=== PATIENT | female | born 1985 | race Caucasian/White ===

== ENCOUNTER 2020-11-02 10:11 | Emergency (ER) | payer BC ==
[2020-11-02 10:17] VITALS: RESP 16
--- NOTE | 2020-11-02 11:01 | ED ---
General Adult HPI - General Chief complaint: Vaginal Bleeding Stated complaint: Vaginal Bleeding Time Seen by Provider: 11/02/20 10:18 Source: patient, RN notes reviewed Mode of arrival: ambulatory Limitations: no limitations - History of Present Illness Initial comments: 35-year-old female presents to the emergency room for vaginal bleeding. Patient reports that this is her sixth day of heavy vaginal bleeding. States she is passing clots. Patient states went to work today and had to frequently change her pads and tampons. Her boss wanted her to come to the ER. Patient denies any lightheadedness or episodes of syncope. Does admit to abdominal cramping. Patient reports that she takes the Depakote shot has been doing so for 3 years.Patient has no other complaints at this time including shortness of breath, chest pain, abdominal pain, nausea or vomiting, headache, or visual changes. - Related Data Allergies Allergy/AdvReac Type Severity Reaction Status Date / Time bee venom protein (honey bee) Allergy Swelling Verified 11/02/20 10:13 chocolate flavor Allergy Rash/Hives Verified 11/02/20 10:13 mustard Allergy Anaphylaxis Verified 11/02/20 10:13 Review of Systems ROS Statement: Those systems with pertinent positive or pertinent negative responses have been documented in the HPI. ROS Other: All systems not noted in ROS Statement are negative. Past Medical History Past Medical History: No Reported History History of Any Multi-Drug Resistant Organisms: None Reported Additional Past Surgical History / Comment(s): multiple D&C Past Psychological History: No Psychological Hx Reported Smoking Status: Never smoker Past Alcohol Use History: Occasional Past Drug Use History: None Reported General Exam Limitations: no limitations General appearance: alert, in no apparent distress Head exam: Present: atraumatic Eye exam: Present: normal appearance, PERRL, EOMI. Absent: scleral icterus, conjunctival injection, periorbital swelling ENT exam: Present: normal exam, mucous membranes moist Neck exam: Present: normal inspection. Absent: tenderness, meningismus, lymphadenopathy Respiratory exam: Present: normal lung sounds bilaterally. Absent: respiratory distress, wheezes, rales, rhonchi, stridor Cardiovascular Exam: Present: regular rate, normal rhythm, normal heart sounds. Absent: systolic murmur, diastolic murmur, rubs, gallop, clicks GI/Abdominal exam: Present: soft, normal bowel sounds. Absent: distended, tenderness, guarding, rebound, rigid External exam: Present: normal external exam. Absent: erythema, swelling, lesions, lacerations, ecchymosis Speculum exam: Present: vaginal bleeding (mild speculum exam). Absent: normal speculum exam, erythema, vaginal discharge, cervical discharge, foreign body, tissue, laceration By manual exam: Present: normal by manual exam. Absent: cervical motion tenderness, adnexal tenderness, adnexal mass Course Vital Signs 11/02/20 11/02/20 11/02/20 10:14 12:00 13:15 Temperature 98.3 F 98.0 F Pulse Rate 123 H 103 H 76 Respiratory 16 16 16 Rate Blood Pressure 114/76 133/89 132/65 O2 Sat by Pulse 98 98 99 Oximetry Medical Decision Making - Medical Decision Making Vitals are stable. Patient initially tachycardic however this did improve throughout her stay. Pelvic exam feels mild vaginal bleeding. Small clot note d. CBC reveals a hemoglobin of 10.9. CMP unremarkable. Patient orally hydrating. Transvaginal ultrasound showed leiomyomas as well as possible echogenis structure within endometrium/ lower uterine segment. Endometrial polyp versus hyperplasia versus cancer not excluded. There is a 2.1 cm cystic structure in the left ovary as well most likely her presenting hemorrhagic cyst. At this time patient is stable for outpatient follow-up. She was given gynecology referral. Discussed the importance of following up with this. She will return here for any worsening symptoms. - Lab Data Result diagrams: 11/02/20 11:02 11/02/20 11:02 Lab Results 11/02/20 11/02/20 11/02/20 Range/Units 11:02 11:02 11:02 WBC 4.7 (3.8-10.6) k/uL RBC 3.86 (3.80-5.40) m/uL Hgb 10.9 L (11.4-16.0) gm/dL Hct 33.1 L (34.0-46.0) % MCV 85.8 (80.0-100.0) fL MCH 28.2 (25.0-35.0) pg MCHC 32.8 (31.0-37.0) g/dL RDW 14.9 (11.5-15.5) % Plt Count 219 (150-450) k/uL MPV 7.9 Neutrophils % 68 % Lymphocytes % 24 % Monocytes % 5 % Eosinophils % 0 % Basophils % 1 % Neutrophils # 3.2 (1.3-7.7) k/uL Lymphocytes # 1.1 (1.0-4.8) k/uL Monocytes # 0.3 (0-1.0) k/uL Eosinophils # 0.0 (0-0.7) k/uL Basophils # 0.0 (0-0.2) k/uL Sodium 139 (137-145) mmol/L Potassium 3.9 (3.5-5.1) mmol/L Chloride 112 H (98-107) mmol/L Carbon Dioxide 21 L (22-30) mmol/L Anion Gap 6 mmol/L BUN 18 H (7-17) mg/dL Creatinine 1.25 H (0.52-1.04) mg/dL Est GFR (CKD-EPI)AfAm 64 (>60 ml/min/1.73 sqM) Est GFR (CKD-EPI)NonAf 55 (>60 ml/min/1.73 sqM) Glucose 93 (74-99) mg/dL Calcium 8.9 (8.4-10.2) mg/dL Total Bilirubin 0.4 (0.2-1.3) mg/dL AST 27 (14-36) U/L ALT 21 (4-34) U/L Alkaline Phosphatase 64 (38-126) U/L Total Protein 9.5 H (6.3-8.2) g/dL Albumin 4.3 (3.5-5.0) g/dL HCG, Qual Not Detected Blood Type O Positive Blood Type Recheck No Previous Record Bld Type Recheck Status CABO Indicated Antibody Screen NEGATIVE Spec Expiration Date 11/05/20202301 Disposition Clinical Impression: Vaginal bleeding Disposition: HOME SELF-CARE Condition: Good Instructions (If sedation given, give patient instructions): Dysfunctional Uterine Bleeding (ED) Additional Instructions: Please follow up with [facility] as soon as possible. If you have worsening symptoms return to the emergency room. Is patient prescribed a controlled substance at d/c from ED?: No Referrals: Darya Phillips DO [Doctor of Osteopathic Medicine] - 1-2 days Time of Disposition: 13:02
[2020-11-02 11:23] LABS: HCG,Qualitative Serum Not Detected
[2020-11-02 11:25] LABS: ALT 21 U/L (4-34); AST 27 U/L (14-36); African American GFR (CKD) 64 (>60 ml/min/1.73 sqM); Albumin 4.3 g/dL (3.5-5.0); Alkaline Phosphatase 64 U/L (38-126); Anion Gap 6 mmol/L; Blood Urea Nitrogen 18 mg/dL (7-17); Calcium 8.9 mg/dL (8.4-10.2); Carbon Dioxide 21 mmol/L (22-30); Chloride 112 mmol/L (98-107); Glucose 93 mg/dL (74-99); Non-African American GFR(CKD) 55 (>60 ml/min/1.73 sqM); Potassium 3.9 mmol/L (3.5-5.1); Sodium 139 mmol/L (137-145); Total Bilirubin 0.4 mg/dL (0.2-1.3); Total Protein 9.5 g/dL (6.3-8.2)
[2020-11-02 11:35] LABS: Basophils % (A) 1 %; Eosinophils % (A) 0 %; HCT 33.1 % (34.0-46.0); HGB 10.9 gm/dL (11.4-16.0); Lymphocytes # (A) 1.1 k/uL (1.0-4.8); Lymphocytes % (A) 24 %; MCH 28.2 pg (25.0-35.0); MCHC 32.8 g/dL (31.0-37.0); MCV 85.8 fL (80.0-100.0); Mean Platelet Volume 7.9; Monocytes # (A) 0.3 k/uL (0-1.0); Monocytes % (A) 5 %; Neutrophils # (A) 3.2 k/uL (1.3-7.7); Neutrophils % (A) 68 %; Platelet Count 219 k/uL (150-450); RBC 3.86 m/uL (3.80-5.40); RDW 14.9 % (11.5-15.5); WBC 4.7 k/uL (3.8-10.6)
--- NOTE | 2020-11-02 12:19 | US ---
EXAMINATION TYPE: US transvaginal DATE OF EXAM: 11/02/2020 COMPARISON: NONE CLINICAL HISTORY: bleeding pain. Bleeding, on Depo shot TECHNIQUE: Transvaginal (TV). Date of LMP: 10/27/2020, EXAM MEASUREMENTS: Uterus: 9.7 x 5.1 x 4.6 cm Endometrial Stripe: 0.5 cm this is within normal limits remonstrating female. Right Ovary: 2.8 x1.1x 1.3 cm Left Ovary: 3.3 x 2.7 x 2.1 cm 1. Uterus: Anteverted Two hypoechoic structures seen. 1- 1.2 x 1.1 x 1.1 cm. 2- left = 0.9 x 0.9 x 0.9 cm 2. Endometrium: Possible echogenic lesion at JESSICA/lower fundus= 1.1 x 1.0 x 0.7 cm 3. Right Ovary: wnl 4. Left Ovary: cystic lesion = 2.0 x 2.1 x 1.8 cm Spectral, color and waveform doppler imaging shows good arterial and venous flow within the ovaries ; there is no evidence for ovarian torsion. 5. Bilateral Adnexa: wnl 6. Posterior cul-de-sac: free fluid IMPRESSION: 1. 2 hypoechoic structures within the uterus are suggestive of leiomyomas. The largest measures up to 1.2 cm. 2. Possible echogenic structure within the endometrium at the lower uterine segment/lower fundus doug uring 1.1 cm. Endometrial polyp, endometrial hyperplasia, or endometrial cancer are not excluded. Dry Talc Racker ecologic evaluation is recommended. 3. 2.1 cm cystic structure in the left ovary. This most likely represents evolving hemorrhagic cyst. 4. Small amount of free fluid in the cul-de-sac is likely physiologic.
[2020-11-02 14:04] VITALS: BP 132/65; PULSE 76; TEMP 98
== END 2020-11-02 13:15 | disposition home or self-care (01) ==
LOC: EC 10:11
DX: N93.9 Abnormal uterine and vaginal bleeding, unspecified (principal); N83.202 Unspecified ovarian cyst, left side
CPT/HCPCS: 76830; 80053; 84703; 85025; 86850; 86900; 86901; 93975; 99284